=== PATIENT | female | born 1945 | race Caucasian/White ===

== ENCOUNTER 2017-02-09 08:40 | Emergency (ER) | payer MEDICARE, OTHER ==
[~2017-02-09] VITALS: Ht 162.6 cm; Wt 71.0 kg
[2017-02-09 08:45] VITALS: Ht 162.6 cm; Wt 71.0 kg
--- NOTE | 2017-02-09 10:24 | RADRPT ---
PROCEDURE: CT Brain without contrast. CLINICAL INDICATION: Left arm numbness, headache. TECHNIQUE: A CT of the brain was performed on multidetector high-resolution CT scanner utilizing a xial sections from the skull base through the vertex without contrast. The scan was reviewed in sof t tissue brain and high frequency resolution bone algorithm windows. Images were reviewed on a high -resolution PACS workstation. One or more the following does reduction techniques were utilized: Aut omated exposure control, adjustment of the mA/ or kV according to patient's size, or use of iterativ e reconstruction technique. The exam CTDI = 43.05 mGy and the DLP = 630.2 mGy-cm. COMPARISON: None available. FINDINGS: The ventricles and sulci are mildly prominent indicative of volume loss. There is no intracranial h emorrhage, mass effect or midline shift. No abnormal intra-axial or extra-axial fluid collections a re seen. The barfield/white matter differentiation is preserved. There are mild scattered foci of hypoattenuation in the periventricular, deep, and subcortical white matter, which are nonspecific in etiology but likely reflect chronic small vessel ischemic changes. Small lacunar infarct is noted in the left lentiform nucleus. There are moderate intracranial vas cular calcifications consistent with atherosclerosis. The visualized paranasal sinuses are essential ly clear. IMPRESSION: 1. No acute intracranial hemorrhage, transcortical infarction or mass effect. If clinical concern p ersists consider brain MRI. 2. Moderate intracranial atherosclerosis and mild chronic small vessel ischemic changes. 3. Small lacunar infarct in the left lentiform nucleus, likely chronic. 4. Mild generalized cerebral volume loss. RPTAT: JJ .Bruce Carballo MD, MD Date Time Electronically viewed and signed by .Bruce Carballo MD, MD on 02/09/2017 10:24 .N/
--- NOTE | 2017-02-09 10:36 | RADRPT ---
PROCEDURE: XR Chest. CLINICAL INDICATION: Chest pain. TECHNIQUE: Single frontal view. COMPARISON: None. FINDINGS: The lungs are clear. The heart size is normal. There is no pleural effusion. There is no pneumothorax. IMPRESSION: 1. Normal chest radiograph. RPTAT: QQ .Vahe Francois MD, Date Time Electronically viewed and signed by .Vahe Francois MD, on 02/09/2017 10:35 .R/
[2017-02-09 10:39] LABS: BASOPHIL # 0.1 10^3/ul (0.0-0.1); BASOPHILS % 0.9 % (0.0-2.0); EOSINOPHILS # 0.5 10^3/ul (0.0-0.5); EOSINOPHILS % 6.5 % (0.0-7.0); HEMATOCRIT 37.8 % (37.0-47.0); HEMOGLOBIN 12.9 g/dl (12.0-16.0); LYMPHOCYTES # 2.5 10^3/ul (0.8-2.9); LYMPHOCYTES % 34.8 % (15.0-51.0); MEAN CORPUSCULAR HEMOGLOBIN 30.1 pg (29.0-33.0); MEAN CORPUSCULAR HGB CONC 34.1 g/dl (32.0-37.0); MEAN CORPUSCULAR VOLUME 88.3 fl (82.0-101.0); MEAN PLATELET VOLUME 9.7 fl (7.4-10.4); MONOCYTE # 0.5 10^3/ul (0.3-0.9); MONOCYTES % 6.5 % (0.0-11.0); NEUTROPHIL # 3.6 10^3/ul (1.6-7.5); PLATELET COUNT 208 10^3/UL (140-415); RED BLOOD COUNT 4.28 10^6/ul (4.20-5.40); RED CELL DISTRIBUTION WIDTH 12.8 % (11.5-14.5); WHITE BLOOD COUNT 7.1 10^3/ul (4.8-10.8)
[2017-02-09 11:00] VITALS: BP 101/67; PULSE 60; RESP 18
[2017-02-09] MEDS ORDERED: MECL-77 PO (11:00)
[2017-02-09] MEDS ORDERED: TRAM-40 PO (11:00)
[2017-02-09] MEDS ORDERED: GABA100C14 PO (11:01)
[2017-02-09] MEDS ORDERED: GLIM2TAB PO (11:01)
[2017-02-09] MEDS ORDERED: DONE23TA12 PO (11:02)
[2017-02-09] MEDS ORDERED: BENA40TA41 PO (11:02)
[2017-02-09] MEDS ORDERED: DICL50TA11 PO (11:02)
[2017-02-09] MEDS ORDERED: SERT25TA83 PO (11:03)
[2017-02-09] MEDS ORDERED: MELO-216 PO (11:04)
[2017-02-09] MEDS ORDERED: METF500T4 PO (11:04)
[2017-02-09] MEDS ORDERED: SIMV40TA2 PO (11:04)
[2017-02-09 11:07] LABS: ALANINE AMINOTRANSFERASE 28 IU/L (13-69); ALBUMIN 4.5 g/dl (3.3-4.9); ALBUMIN/GLOBULIN RATIO 1.32; ALKALINE PHOSPHATASE 96 IU/L (42-121); ANION GAP 17 (8-16); ASPARTATE AMINO TRANSFERASE 21 IU/L (15-46); BILIRUBIN,INDIRECT 0.2 mg/dl (0-1.1); BILIRUBIN,TOTAL 0.2 mg/dl (0.2-1.3); BLOOD UREA NITROGEN 10 mg/dl (7-20); CALCIUM 9.8 mg/dl (8.4-10.2); CARBON DIOXIDE 26 mmol/L (21-31); CHLORIDE 103 mmol/L (97-110); CREATININE 0.65 mg/dl (0.44-1.00); GLUCOSE 130 mg/dl (70-220); POTASSIUM 4.5 mmol/L (3.5-5.1); SODIUM 141 mmol/L (135-144); TOTAL PROTEIN 7.9 g/dl (6.1-8.1)
[2017-02-09 11:24] LABS: TROPONIN-I < 0.012 ng/ml (0.00-0.12)
[2017-02-09] MEDS ORDERED: AMLO-218 PO (11:43)
--- NOTE | 2017-02-09 11:47 | ERD ---
ER Documentation Chief Complaint Chief Complaint CHEST PAIN, SWOLLEN FACE & EYE & BLOOD PRESSURE UNSTABLE X3 WKS HPI This is a 71-year-old female with multiple complaints. She says for the past month she has had swelling of her upper lip and a chronic cough. The patient is taking an HARVINDER inhibitor. No swelling to her throat or tongue. No shortness of breath or difficulty breathing or hives. She also states that she has had some sharp left upper chest pain located just under the clavicle about 3 weeks ago but none since. She says sometimes she has left arm tingling but it is very inconsistent has not happened for weeks. No substernal chest pain shortness of breath dizziness palpitations nausea. Patient is also complaining of a left-sided headache off and on for the past month as well. No photophobia phonophobia no fever no stiff neck. Currently she is asymptomatic ROS All systems reviewed and are negative except as per history of present illness. Medications Home Meds Active Scripts Amlodipine Besylate* (Norvasc*) 10 Mg Tablet, 10 MG PO QHS, #30 TAB Prov:CLOTILDE IRVING DO 02/09/17 Reported Medications Meloxicam* (Meloxicam*) 7.5 Mg Tablet, 7.5 MG PO DAILY, #30 TAB 02/09/17 Metformin* (Glucophage*) 500 Mg Tab, 500 MG PO BID, #60 TAB 02/09/17 Simvastatin* (Zocor*) 40 Mg Tablet, 40 MG PO QHS, #30 TAB 02/09/17 Sertraline Hcl* (Sertraline Hcl*) 25 Mg Tablet, 25 MG PO DAILY, #30 TAB 02/09/17 Benazepril Hcl* (Benazepril Hcl*) 40 Mg Tablet, 40 MG PO DAILY, #30 TAB 02/09/17 Diclofenac Sodium* (Diclofenac Sodium*) 50 Mg Tablet.dr, 50 MG PO BID, #60 TAB 02/09/17 Donepezil* (Donepezil*) 23 Mg Tablet, 23 MG PO DAILY, #30 TAB 02/09/17 Gabapentin* (Gabapentin*) 100 Mg Capsule, 100 MG PO TID, #90 CAP 02/09/17 Glimepiride* (Glimepiride*) 2 Mg Tablet, 2 MG PO WITH BREAKFAST, TAB 10/23/17 Meclizine Hcl* (Meclizine Hcl*) 25 Mg Tablet, 25 MG PO Q8H Y for DIZZINESS, TAB 02/09/17 Tramadol Hcl* (Ultram*) 50 Mg Tablet, 50 MG PO Q6H Y for PAIN, TAB 02/09/17 Allergies Allergies: Coded Allergies: No Known Allergy (Unverified , 02/09/17) PMhx/Soc Hx Cardiac Disorders: Yes (HTN) Hx Miscellaneous Medical Probl: Yes (DM) Hx Alcohol Use: No Hx Substance Use: No Hx Tobacco Use: No Smoking Status: Never smoker FmHx Family History: No coronary disease Physical Exam Vitals Vital Signs Date Time Temp Pulse Resp B/P Pulse Ox O2 Delivery O2 Flow Rate FiO2 02/09/17 09:58 67 20 148/68 94 Room Air 02/09/17 08:45 97.6 77 20 173/79 97 Physical Exam Const: Well-developed, well-nourished Head: Atraumatic, normocephalic Eyes: Normal Conjunctiva, PERRLA, EOMI, normal sclera, no nystagmus ENT: Normal External Ears, Nose and Mouth, moist mucus membranes. Neck: Full range of motion. No meningismus, no lymphadenopathy. Resp: Clear to auscultation bilaterally, no wheezing, rhonchi, rales Cardio: Regular rate and rhythm, no murmurs, S1 S2 present Abd: Soft, non tender x 4, non distended. Normal bowel sounds, no guarding or rebound, no pulsitile abdominal masses or bruits Skin: No petechiae or rashes, no ecchymosis , no maculopapular rash Back: No midline or flank tenderness Ext: No cyanosis, or edema, FROM x 4, normal inspection, neurovascularly intact x 4 Neur: Awake and alert, STR 5/5 x 4, sensation intact x 4, no focal findings, cerebellum intact Psych: Normal Mood and Affect Result Diagram: 02/09/17 1020 02/09/17 1020 Results 24 hrs Laboratory Tests Test 02/09/17 10:20 White Blood Count 7.110^3/ul Red Blood Count 4.2810^6/ul Hemoglobin 12.9g/dl Hematocrit 37.8% Mean Corpuscular Volume 88.3fl Mean Corpuscular Hemoglobin 30.1pg Mean Corpuscular Hemoglobin Concent 34.1g/dl Red Cell Distribution Width 12.8% Platelet Count 80926^3/UL Mean Platelet Volume 9.7fl Neutrophils % 51.0% Lymphocytes % 34.8% Monocytes % 6.5% Eosinophils % 6.5% Basophils % 0.9% Nucleated Red Blood Cells % 0.0/100WBC Neutrophils # 3.610^3/ul Lymphocytes # 2.510^3/ul Monocytes # 0.510^3/ul Eosinophils # 0.510^3/ul Basophils # 0.110^3/ul Nucleated Red Blood Cells # 0.010^3/ul Sodium Level 141mmol/L Potassium Level 4.5mmol/L Chloride Level 103mmol/L Carbon Dioxide Level 26mmol/L Anion Gap 17 Blood Urea Nitrogen 10mg/dl Creatinine 0.65mg/dl Glucose Level 130mg/dl Calcium Level 9.8mg/dl Total Bilirubin 0.2mg/dl Direct Bilirubin 0.00mg/dl Indirect Bilirubin 0.2mg/dl Aspartate Amino Transf (AST/SGOT) 21IU/L Alanine Aminotransferase (ALT/SGPT) 28IU/L Alkaline Phosphatase 96IU/L Troponin I < 0.012ng/ml Total Protein 7.9g/dl Albumin 4.5g/dl Globulin 3.40g/dl Albumin/Globulin Ratio 1.32 Procedures/MDM EKG: Rate/Rhythm: Normal Sinus Rhythm,NL intervals QRS, ST, QT: NORMAL ND, QRS, QT] Impression: NORMAL EKG PROCEDURE: CT Brain without contrast. CLINICAL INDICATION: Left arm numbness, headache. TECHNIQUE: A CT of the brain was performed on multidetector high-resolution CT scanner utilizing axial sections from the skull base through the vertex without contrast. The scan was reviewed in soft tissue brain and high frequency resolution bone algorithm windows. Images were reviewed on a high- resolution PACS workstation. One or more the following does reduction techniques were utilized: Automated exposure control, adjustment of the mA/ or kV according to patient's size, or use of iterative reconstruction technique. The exam CTDI = 43.05 mGy and the DLP = 630.2 mGy-cm. COMPARISON: None available. FINDINGS: The ventricles and sulci are mildly prominent indicative of volume loss. There is no intracranial hemorrhage, mass effect or midline shift. No abnormal intra- axial or extra-axial fluid collections are seen. The barfield/white matter differentiation is preserved. There are mild scattered foci of hypoattenuation in the periventricular, deep, and subcortical white matter, which are nonspecific in etiology but likely reflect chronic small vessel ischemic changes. Small lacunar infarct is noted in the left lentiform nucleus. There are moderate intracranial vascular calcifications consistent with atherosclerosis. The visualized paranasal sinuses are essentially clear. IMPRESSION: 1. No acute intracranial hemorrhage, transcortical infarction or mass effect. If clinical concern persists consider brain MRI. 2. Moderate intracranial atherosclerosis and mild chronic small vessel ischemic changes. 3. Small lacunar infarct in the left lentiform nucleus, likely chronic. 4. Mild generalized cerebral volume loss. RPTAT: JJ .Bruce Carballo MD, Date Time Electronically viewed and signed by .Bruce Carballo MD, MD on 02/09/2017 10: 24 .N/ CC: CLOTILDE IRVING DO PROCEDURE: XR Chest. CLINICAL INDICATION: Chest pain. TECHNIQUE: Single frontal view. COMPARISON: None. FINDINGS: The lungs are clear. The heart size is normal. There is no pleural effusion. There is no pneumothorax. IMPRESSION: 1. Normal chest radiograph. RPTAT: QQ .Vahe Francois MD, Date Time Electronically viewed and signed by .Vahe Francois MD, on 02/09/2017 10:35 .R/ CC: CLOTILDE IRVING DO Hold the benazepril. We will add Norvasc at night. Told her to take one baby aspirin a day. We will follow-up with her primary Departure Diagnosis: Primary Impression: Angioedema Encounter type: initial encounter Qualified Code: T78.3XXA - Angioedema, initial encounter Condition: Stable Patient Instructions: Angioedema Additional Instructions: stop BENZAPRIL CLOTILDE IRVING DO Feb 09, 2017 11:47
== END 2017-02-09 11:20 | disposition home or self-care (01) ==
LOC: E/R 08:40
DX: T78.3XXA Angioneurotic edema, initial encounter (principal); I10 Essential (primary) hypertension; E11.9 Type 2 diabetes mellitus without complications; R51 Headache; Z79.84 Long term (current) use of oral hypoglycemic drugs
CPT/HCPCS: 36415; 70450; 71010; 80053; 84484; 85025; 93005

== ENCOUNTER 2017-11-25 11:34 | Observation (INO) | END 2017-11-26 15:36 | disposition home or self-care (01) ==

== ENCOUNTER 2018-06-11 23:57 | Emergency (ER) | payer MEDICARE, OTHER ==
[~2018-06-11] VITALS: Ht 157.5 cm; Wt 77.3 kg
[~2018-06-11 23:57] MED LIST: BENA40TA56 PO; GABA100C14 PO; GLIM2TAB PO; MECL-77 PO; METF-849 PO; SIMV40TA2 PO
[2018-06-12 00:06] VITALS: Ht 157.5 cm; Wt 77.3 kg
[2018-06-12] MEDS ORDERED: ONDANSETRON 4 MG INJ IV STA ×2 (00:23→03:06)
[2018-06-12] MEDS ORDERED: SOD CHLORIDE 0.9% 500 ML IV STA (00:23)
[2018-06-12] MEDS ORDERED: METOCLOPRAMIDE 10 MG INJ IV STA (00:23)
[2018-06-12] MEDS ORDERED: ACETAMINOPHEN 325 MG TAB PO STA (00:23)
[2018-06-12] MEDS ORDERED: KETOROLAC 15 MG INJ IV STA (03:06)
--- NOTE | 2018-06-12 03:07 | ERD ---
ER Documentation Chief Complaint Chief Complaint CAROLA MARTE,from home,WADDELL started an hour ago,HTN,vomiting HPI This is a 73-year-old female with a past medical history of hypertension, hyperlipidemia, diabetes, diabetic neuropathy, vertigo, previous headaches who is presenting from home with concerns of elevated blood pressure. The patient reports that she checked her blood pressure with a systolic reading over 200. She checked because she was having a mild to moderate occipital headache with nausea and one episode of nonbilious nonbloody vomiting. The patient denies any vision changes. She had no photophobia or phonophobia or blurry or double vision. The patient does not endorse any chest pain or trouble breathing. Whi le the patient does endorse nausea, she does not have any abdominal pain. She has not had any changes to bowel movements or urination. She denies constipation or diarrhea. She denies any black or bloody or tarry stools. She denies any dysuria or hematuria or urgency or frequency. Since coming to the emergency department, the patient reports significant improvement of her symptoms. The patient's blood pressure has also improved on its own. The patient does continue to endorse some nausea, but the patient's headache is gone. The patient has not been sick recently. She denies any fever or chills. She denies any focal deficits. She denies any weakness or numbness or tingling to the face or extremities. ROS All systems reviewed and are negative except as per history of present illness. Medications Home Meds Reported Medications Propranolol Hcl* (Propranolol Hcl*) 20 Mg Tablet, 20 MG PO DAILY, TAB 06/12/18 Donepezil* (Donepezil*) 23 Mg Tablet, 23 MG PO DAILY, #30 TAB 06/12/18 Carvedilol* (Carvedilol*) 6.25 Mg Tablet, 6.25 MG PO BID, #60 TAB 06/12/18 Aspirin* (Aspirin* Chew) 81 Mg Tab.chew, 81 MG PO DAILY, TAB.CHEW CHEW AND SWALLOW 1 TABLET BY MOUTH DAILY 06/12/18 Sertraline Hcl* (Sertraline Hcl*) 25 Mg Tablet, 25 MG PO DAILY, #30 TAB 06/12/18 Tramadol Hcl* (Ultram*) 50 Mg Tablet, 50 MG PO Q6H PRN for PAIN, TAB 06/12/18 Gabapentin* (Gabapentin*) 100 Mg Capsule, 100 MG PO TID, #90 CAP 11/25/17 Meclizine Hcl* (Meclizine Hcl*) 25 Mg Tablet, 25 MG PO Q8H PRN for DIZZINESS, TAB 11/25/17 Metformin* (Glucophage*) 500 Mg Tab, 500 MG PO BID, #60 TAB 02/09/17 Simvastatin* (Zocor*) 40 Mg Tablet, 40 MG PO QHS, #30 TAB 02/09/17 Benazepril Hcl* (Benazepril Hcl*) 40 Mg Tablet, 40 MG PO DAILY, #30 TAB 02/09/17 Glimepiride* (Glimepiride*) 2 Mg Tablet, 2 MG PO WITH BREAKFAST, TAB 02/09/17 Allergies Allergies: Coded Allergies: No Known Allergy (Unverified , 06/12/18) PMhx/Soc History of Surgery: Yes (Galbladder removal and hernia repair ) Anesthesia Reaction: No Hx Neurological Disorder: No Hx Respiratory Disorders: No Hx Cardiac Disorders: Yes (HTN, hyperlipidemia, occlusion of cardiac artery per cardio) Hx Psychiatric Problems: No Hx Miscellaneous Medical Probl: No Hx Alcohol Use: No Hx Substance Use: No Hx Tobacco Use: No Smoking Status: Never smoker FmHx Family History: diabetes Physical Exam Vitals Vital Signs Date Temp Pulse Resp B/P (MAP) Pulse Ox O2 O2 Flow FiO2 Time Delivery Rate 06/12/18 97.7 62 18 141/70 95 Room Air 02:32 (93) 06/12/18 97.7 78 18 187/84 97 00:06 (118) Physical Exam Const: No apparent distress, well-developed, well-nourished Head: Normocephalic, Atraumatic Eyes: Normal Conjunctiva. Extraocular movements intact. Pupils equal, round and reactive to light ENT: Normal External Ears, Nose and Mouth. Neck: Full range of motion. No meningismus. Resp: Clear to auscultation bilaterally, No wheezes, rales or rhonchi Cardio: Regular rate and rhythm. No murmurs, rubs or gallops Abd: Soft, non tender, non distended. Normal bowel sounds Skin: No petechiae or rashes Back: No midline tenderness. No CVA tenderness Ext: No cyanosis, or edema Neur: Awake and alert, oriented 4. Cranial nerves intact. No facial droop. Normal strength, sensation and coordination. Psych: Normal Mood and Affect Result Diagram: 06/12/18 0042 06/12/18 0042 Results 24 hrs Laboratory Tests Test 06/12/18 00:42 White Blood Count 8.9 10^3/ul Red Blood Count 4.56 10^6/ul Hemoglobin 13.3 g/dl Hematocrit 40.2 % Mean Corpuscular Volume 88.2 fl Mean Corpuscular Hemoglobin 29.2 pg Mean Corpuscular Hemoglobin Concent 33.1 g/dl Red Cell Distribution Width 12.4 % Platelet Count 193 10^3/UL Mean Platelet Volume 10.1 fl Immature Granulocytes % 0.100 % Neutrophils % 72.6 % Lymphocytes % 18.3 % Monocytes % 4.0 % Eosinophils % 4.2 % Basophils % 0.8 % Nucleated Red Blood Cells % 0.0 /100WBC Immature Granulocytes # 0.010 10^3/ul Neutrophils # 6.5 10^3/ul Lymphocytes # 1.6 10^3/ul Monocytes # 0.4 10^3/ul Eosinophils # 0.4 10^3/ul Basophils # 0.1 10^3/ul Nucleated Red Blood Cells # 0.0 10^3/ul Prothrombin Time 12.4 Sec Prothrombin Time Ratio 1.0 INR International Normalized Ratio 0.91 Activated Partial Thromboplast Time 25.5 Sec Sodium Level 136 mmol/L Potassium Level 3.9 mmol/L Chloride Level 102 mmol/L Carbon Dioxide Level 24 mmol/L Anion Gap 10 Blood Urea Nitrogen 14 mg/dl Creatinine 0.54 mg/dl Est Glomerular Filtrat Rate mL/min mL/min Glucose Level 291 mg/dl Calcium Level 9.6 mg/dl Total Bilirubin 0.1 mg/dl Direct Bilirubin 0.00 mg/dl Indirect Bilirubin 0.1 mg/dl Aspartate Amino Transf (AST/SGOT) 24 IU/L Alanine Aminotransferase (ALT/SGPT) 21 IU/L Alkaline Phosphatase 93 IU/L Troponin I < 0.012 ng/ml Total Protein 7.1 g/dl Albumin 4.3 g/dl Lipase 467 U/L Current Medications Medications Dose Sig/Reji Start Time Status Last (Trade) Ordered Route PRN Stop Time Admin Dose Reason Admin Sodium 500 ml @ Q1H STAT 06/12/18 DC 06/12/18 Chloride 500 mls/hr IV 00:23 00:52 06/12/18 01:22 650 mg ONCE STAT 06/12/18 DC 06/12/18 Acetaminophen PO 00:23 00:52 (Tylenol 06/12/18 00:24 Tab) 10 mg ONCE STAT 06/12/18 DC 06/12/18 Metoclopramid IV 00:23 00:51 e HCl 06/12/18 00:24 (Reglan) Ondansetron 4 mg ONCE STAT 06/12/18 DC 06/12/18 HCl (Zofran IV 00:23 00:51 Inj) 06/12/18 00:24 Ketorolac 15 mg ONCE STAT 06/12/18 DC 06/12/18 Tromethamine IV 03:06 03:12 (Toradol) 06/12/18 03:07 Ondansetron 4 mg ONCE STAT 06/12/18 DC 06/12/18 HCl (Zofran IV 03:06 03:12 Inj) 06/12/18 03:07 Procedures/MDM MDM The patient's presentation warrants further investigation. Previous medical records, if available, were reviewed. LABS The patient's laboratory testing was obtained and reviewed. No emergent treatment was required unless described below. CBC: No E/o of systemic infection or severe anemia or thrombocytopenia CMP: No E/o severe acidosis or alkalosis or renal failure or liver disease. Hyperglycemia without diabetic ketoacidosis Lipase: Mildly elevated but not 3 times normal, low suspicion for acute pancreatitis. PT/INR: No E/o significant coagulopathy Troponin: No E/o acute ischemia EKG EKG read by me: Rate/Rhythm: Regular rate and rhythm at a rate of 69 bpm Intervals: Normal [place]: Normal Impression: No evidence of acute ischemia or arrhythmia IMAGING Imaging and Radiology interpretation reviewed. CXR FINDINGS: Low lung volumes. Normal cardiac and mediastinal configuration. Aortic calcified plaque present. Mild central peribronchial thickening. Mild congestion and compress markings at the lung bases. No pneumothorax or pleural effusion. IMPRESSION: Low lung volumes with compressed pulmonary markings and mild congestion at both lung bases. Mild central bronchitis. Electronically viewed and signed by Kenneth Hyatt Physician on 06/12/2018 02:17 TREATMENT/DISPOSITION The patient presents with a headache and nausea and an episode of elevated blood pressure. The patient's blood pressure improved significantly in the emergency department without treatment. I do not see evidence of hypertensive urgency or emergency. The patient does not require admission for blood pressure control. I have discussed with the patient the risks of hypertension. I have instructed the patient to return to the ER for any new or worsening symptoms including chest pain, shortness of breath, headache, blurred vision, confusion, nausea, vomiting or LOC. The headache was also assessed. The patient's headache improved prior to arrival to the emergency department as well. Differential diagnosis includes migraine, tension headache, cluster headache. The patient has no focal deficits. The neurologic exam is reassuring. I have decreased suspicion for cerebral ischemia. There was no trauma or injury. There is no personal or family history of cerebral aneurysm. This is not the worst headache of the patient's life. It was not acutely severe. It is been progressive in nature. I have decreased suspicion for SAH or other ICH. I have low suspicion for temporal arteritis, cavernous venous thrombosis, subdural hematoma, epidural hematoma, meningitis. CT imaging is not warranted at this time. The patient's chest xray does not reveal pneumonia or pneumothorax or pleural effusions or pulmonary edema. She does not have a widened mediastinum and does not have signs or symptoms concerning for thoracic aortic aneurysm or dissection. The patient does not have pneumomediastinum or signs concerning for esophageal tear or rupture. The patient has no clinical or radiographic signs of pericardial effusion or tamponade. The patient does not have pneumoperitoneum and I have decreased suspicion of viscus perforation as possible referred pain. The patient does not have a history of heart failure and I have low suspicion for this. The patient does not have a diagnosis of COPD and is not wheezing today. The patient is not tachypneic or hypoxic. The patient is breathing comfortably and without pleuritic pain. The patient is not on hormonal therapy. The patient has no history of clotting or bleeding disorders. The patient has no calf tenderness. The patient has had no hemoptysis. I have decreased suspicion for PE. The patient's troponin and EKG are reassuring. I have low suspicion for acute coronary syndrome. The patient was treated with IV fluids, Reglan and Benadryl in the emergency department. She was later provided Toradol and Zofran in the emergency department. Upon reevaluation of the patient, symptoms have improved. No emergent diagnoses were identified. At this time, I feel that the patient stable for discharge. The patient was instructed to follow-up with a primary care physician in 1-3 days. The patient will be given strict precautions with which to return to the emergency department. Prescriptions: Zofran Disclaimer: Inadvertent spelling and grammatical errors are likely due to EHR/dictation software use and do not reflect on the overall quality of patient care. Note that the electronic time recorded on this note does not necessarily reflect the actual time of the patient encounter. Departure Diagnosis: Primary Impression: Elevated blood pressure reading Additional Impressions: Headache Headache type: unspecified Headache chronicity pattern: acute headache Intractability: not intractable Qualified Codes: R51 - Headache Nausea and vomiting Vomiting type: unspecified Vomiting Intractability: non-intractable Qualified Codes: R11.2 - Nausea with vomiting, unspecified Hyperglycemia Condition: GENNY Arevalo MD Jun 12, 2018 03:07
[2018-06-12] MEDS ORDERED: CARV6.2579 PO (03:29)
[2018-06-12] MEDS ORDERED: SERT25TA83 PO (03:29)
[2018-06-12] MEDS ORDERED: ASPI-903 PO (03:29)
[2018-06-12] MEDS ORDERED: TRAM50TA PO (03:29)
[2018-06-12] MEDS ORDERED: DONE23TA12 PO (03:30)
[2018-06-12] MEDS ORDERED: PROP20TA4 PO (03:34)
[2018-06-12] MEDS ORDERED: ONDA4TAB8 PO (05:01)
[2018-06-12 05:21] VITALS: BP 126/65; PULSE 77; RESP 18
== END 2018-06-12 05:22 | disposition home or self-care (01) ==
LOC: E/R 23:57
DX: I10 Essential (primary) hypertension (principal); R11.2 Nausea with vomiting, unspecified; E11.65 Type 2 diabetes mellitus with hyperglycemia; Z79.82 Long term (current) use of aspirin; Z79.84 Long term (current) use of oral hypoglycemic drugs
CPT/HCPCS: 36415; 71045; 80048; 80076; 83690; 84484; 85025; 85610; 85730; 93005; 96374; 96375; 96376; 99285; J1885; J2405; J2765; J7040

== ENCOUNTER 2018-07-30 11:46 | Emergency (ER) | payer MEDICARE, OTHER ==
[~2018-07-30] VITALS: Ht 180.3 cm; Wt 75.0 kg
[~2018-07-30 11:46] MED LIST changes: +ASPI-903 PO; +CARV6.2579 PO; +DONE23TA12 PO; +ONDA4TAB8 PO; +PROP20TA4 PO; +SERT25TA83 PO; +TRAM50TA PO
[2018-07-30] MEDS ORDERED: DIPHENHYDRAMINE 50 MG INJ IV STA (11:56)
[2018-07-30] MEDS ORDERED: METOCLOPRAMIDE 10 MG INJ IV STA (11:56)
[2018-07-30] MEDS ORDERED: SOD CHLORIDE 0.9% 100 ML ONE (12:05)
[2018-07-30] MEDS ORDERED: IODIXANOL LOCM 100 ML BTL ONE (12:05)
[2018-07-30 12:13] VITALS: Ht 180.3 cm; Wt 75.0 kg
[2018-07-30 12:39] VITALS: BP 173/77; PULSE 83; RESP 14
--- NOTE | 2018-07-30 12:44 | ERD ---
ER Documentation Chief Complaint Chief Complaint HEADACHE FROM HOME STARTED 8AM WITH N/V X 2 HPI This is a 73-year-old female presents with a headache, associated nausea and vomiting started at 8 AM this morning. She was brought in by EMS, she had no fever, there were no alleviating or aggravating factors, she presented actively vomiting. She has not had a history of trauma, she had no focal weakness, she had no chest pain or shortness of breath. ROS All systems reviewed and are negative except as per history of present illness. Medications Home Meds Reported Medications Tramadol Hcl* (Ultram*) 50 Mg Tablet, 50 MG PO DAILY PRN for PAIN, TAB 07/30/18 Meclizine Hcl* (Meclizine Hcl*) 25 Mg Tablet, 25 MG PO NEEDED PRN for DIZZINESS, TAB 07/30/18 Aspirin* (Aspirin* EC) 81 Mg Tablet.dr, 81 MG PO DAILY, TAB 07/30/18 Cyclobenzaprine Hcl (Fexmid) 7.5 Mg Tablet, 7.5 MG PO BID, TAB 07/30/18 Donepezil* (Donepezil*) 23 Mg Tablet, 23 MG PO DAILY, #30 TAB 07/30/18 Sertraline Hcl* (Sertraline Hcl*) 25 Mg Tablet, 25 MG PO DAILY, #30 TAB 07/30/18 Glimepiride* (Glimepiride*) 2 Mg Tablet, 2 MG PO WITH BREAKFAST, TAB 07/30/18 Gabapentin* (Gabapentin*) 100 Mg Capsule, 100 MG PO DAILY, #90 CAP 07/30/18 Simvastatin* (Zocor*) 40 Mg Tablet, 40 MG PO QHS, #30 TAB 07/30/18 Benazepril Hcl* (Benazepril Hcl*) 40 Mg Tablet, 40 MG PO DAILY, #30 TAB 07/30/18 Metformin Hcl* (Metformin Hcl*) 500 Mg Tablet, 500 MG PO WITH MEALS, #90 TAB 07/30/18 Propranolol Hcl* (Propranolol Hcl*) 20 Mg Tablet, 20 MG PO DAILY, TAB 07/30/18 Discontinued Reported Medications Propranolol Hcl* (Propranolol Hcl*) 20 Mg Tablet, 20 MG PO DAILY, TAB 06/12/18 Donepezil* (Donepezil*) 23 Mg Tablet, 23 MG PO DAILY, #30 TAB 06/12/18 Carvedilol* (Carvedilol*) 6.25 Mg Tablet, 6.25 MG PO BID, #60 TAB 06/12/18 Aspirin* (Aspirin* Chew) 81 Mg Tab.chew, 81 MG PO DAILY, TAB.CHEW CHEW AND SWALLOW 1 TABLET BY MOUTH DAILY 06/12/18 Sertraline Hcl* (Sertraline Hcl*) 25 Mg Tablet, 25 MG PO DAILY, #30 TAB 06/12/18 Tramadol Hcl* (Ultram*) 50 Mg Tablet, 50 MG PO Q6H PRN for PAIN, TAB 06/12/18 Gabapentin* (Gabapentin*) 100 Mg Capsule, 100 MG PO TID, #90 CAP 11/25/17 Meclizine Hcl* (Meclizine Hcl*) 25 Mg Tablet, 25 MG PO Q8H PRN for DIZZINESS, TAB 11/25/17 Metformin* (Glucophage*) 500 Mg Tab, 500 MG PO BID, #60 TAB 02/09/17 Simvastatin* (Zocor*) 40 Mg Tablet, 40 MG PO QHS, #30 TAB 02/09/17 Benazepril Hcl* (Benazepril Hcl*) 40 Mg Tablet, 40 MG PO DAILY, #30 TAB 02/09/17 Glimepiride* (Glimepiride*) 2 Mg Tablet, 2 MG PO WITH BREAKFAST, TAB 02/09/17 Discontinued Scripts Ondansetron Hcl* (Zofran*) 4 Mg Tablet, 4 MG PO Q6H for NAUSEA AND/OR VOMITING, #30 TAB Prov:GENNY GARG MD 06/12/18 Allergies Allergies: Coded Allergies: No Known Allergy (Unverified , 07/30/18) PMhx/Soc History of Surgery: Yes (Galbladder removal and hernia repair ) Anesthesia Reaction: No Hx Neurological Disorder: No Hx Respiratory Disorders: No Hx Cardiac Disorders: Yes (HTN, hyperlipidemia, occlusion of cardiac artery per cardio) Hx Psychiatric Problems: No Hx Miscellaneous Medical Probl: No Hx Alcohol Use: No Hx Substance Use: No Hx Tobacco Use: No Physical Exam Vitals Vital Signs Date Temp Pulse Resp B/P (MAP) Pulse Ox O2 O2 Flow FiO2 Time Delivery Rate 07/30/18 83 14 173/77 97 Nasal 2.0 12:39 (109) Cannula 07/30/18 98.1 75 18 210/99 10 12:13 (136) Physical Exam Const: Actively vomiting, uncomfortable appearing. Head: Atraumatic Eyes: Normal Conjunctiva ENT: Normal External Ears, Nose and Mouth. Neck: Full range of motion. No meningismus. Resp: Clear to auscultation bilaterally Cardio: Regular rate and rhythm, no murmurs Abd: Soft, non tender, non distended. Normal bowel sounds Skin: No petechiae or rashes Back: No midline or flank tenderness Ext: No cyanosis, or edema Neur: Neuro: M/S: Alert and oriented Face: EOMI, face and pharynx with normal sensation and function Motor: Normal strength throughout Sensation: Normal sensation throughout Speech: Normal Cerebel: Normal coordination Normal gait Normal finger to nose DTR: 2+ and symmetric upper/lower extremities Psych: Normal Mood and Affect Result Diagram: 07/30/18 1224 07/30/18 1224 Results 24 hrs Laboratory Tests Test 07/30/18 12:24 White Blood Count 9.2 10^3/ul Red Blood Count 4.06 10^6/ul Hemoglobin 12.0 g/dl Hematocrit 35.7 % Mean Corpuscular Volume 87.9 fl Mean Corpuscular Hemoglobin 29.6 pg Mean Corpuscular Hemoglobin Concent 33.6 g/dl Red Cell Distribution Width 12.8 % Platelet Count 178 10^3/UL Mean Platelet Volume 9.8 fl Immature Granulocytes % 0.300 % Neutrophils % 58.1 % Lymphocytes % 28.2 % Monocytes % 5.9 % Eosinophils % 6.8 % Basophils % 0.7 % Nucleated Red Blood Cells % 0.0 /100WBC Immature Granulocytes # 0.030 10^3/ul Neutrophils # 5.4 10^3/ul Lymphocytes # 2.6 10^3/ul Monocytes # 0.5 10^3/ul Eosinophils # 0.6 10^3/ul Basophils # 0.1 10^3/ul Nucleated Red Blood Cells # 0.0 10^3/ul Prothrombin Time 12.2 Sec Prothrombin Time Ratio 1.0 INR International Normalized Ratio 0.89 Activated Partial Thromboplast Time 24.5 Sec Sodium Level 136 mmol/L Potassium Level 3.7 mmol/L Chloride Level 106 mmol/L Carbon Dioxide Level 24 mmol/L Anion Gap 6 Blood Urea Nitrogen 16 mg/dl Creatinine 0.51 mg/dl Est Glomerular Filtrat Rate mL/min mL/min Glucose Level 249 mg/dl Calcium Level 8.9 mg/dl Troponin I < 0.012 ng/ml Current Medications Medications Dose Sig/Reji Start Time Status Last (Trade) Ordered Route PRN Stop Time Admin Dose Reason Admin 10 mg ONCE STAT 07/30/18 DC 07/30/18 Metoclopramid IV 11:56 12:07 e HCl 07/30/18 11:58 (Reglan) 12.5 mg ONCE STAT 07/30/18 DC 07/30/18 Diphenhydrami IV 11:56 12:25 ne HCl 07/30/18 11:58 (Benadryl) IV Flush 10 ml STK-MED 07/30/18 DC (NS 10 ml) ONCE .ROUTE 12:05 07/30/18 12:06 Sodium 100 ml @ ud STK-MED 07/30/18 DC Chloride ONCE .ROUTE 12:05 07/30/18 12:06 Iodixanol 100 ml STK-MED 07/30/18 DC (Visipaque ONCE .ROUTE 12:05 Locm) 07/30/18 12:06 Procedures/MDM This is a 73-year-old female presents for evaluation of acute headache. Given her hypertension, as well as nausea and vomiting, concern was for acute hemorrhagic stroke, code stroke was called, and a CTA and CT brain were performed, both of which were negative for acute findings. She had no focal neurologic deficits on exam, and at this point, I do not suspect an ischemic stroke. Patient was treated for headache and experienced significant relief in her symptoms, she had no infectious symptoms, and a very low suspicion for meningitis. At discharge the patient was comfortable appearing, smiling and in no acute distress per EKG: Rate/Rhythm: Normal Sinus Rhythm QRS, ST, T-waves: No changes consistent w/ acute ischemia Impression: No evidence of ischemia or arrhythmia Departure Diagnosis: Primary Impression: Headache Headache type: unspecified Headache chronicity pattern: unspecified pattern Intractability: not intractable Qualified Codes: R51 - Headache Condition: Stable MEENU HOGAN MD Jul 30, 2018 12:44
[2018-07-30] MEDS ORDERED: METF500T24 PO (13:01)
[2018-07-30] MEDS ORDERED: PROP20TA4 PO (13:01)
[2018-07-30] MEDS ORDERED: BENA40TA56 PO (13:02)
[2018-07-30] MEDS ORDERED: SIMV40TA2 PO (13:02)
[2018-07-30] MEDS ORDERED: GABA100C14 PO (13:03)
[2018-07-30] MEDS ORDERED: SERT25TA83 PO (13:03)
[2018-07-30] MEDS ORDERED: GLIM2TAB PO (13:03)
[2018-07-30] MEDS ORDERED: DONE23TA12 PO (13:04)
[2018-07-30] MEDS ORDERED: MECL-77 PO (13:05)
[2018-07-30] MEDS ORDERED: ASPI-817 PO (13:05)
[2018-07-30] MEDS ORDERED: [UNRECOGNIZED DRUG - CODE] PO (13:05)
[2018-07-30] MEDS ORDERED: TRAM50TA PO (13:06)
== END 2018-07-30 15:26 | disposition home or self-care (01) ==
LOC: E/R 11:46
DX: R51 Headache (principal); R11.2 Nausea with vomiting, unspecified; I10 Essential (primary) hypertension; E11.9 Type 2 diabetes mellitus without complications; R07.9 Chest pain, unspecified; Z79.82 Long term (current) use of aspirin; Z79.84 Long term (current) use of oral hypoglycemic drugs
CPT/HCPCS: 36415; 70450; 70496; 70498; 71045; 80048; 84484; 85025; 85610; 85730; 93005; 96374; 96375; 99285; J1200; J2765; Q9967